=== PATIENT | female | born 1985 | race Caucasian/White ===

== ENCOUNTER 2018-12-01 12:38 | Emergency (ER) | payer OTHER ==
[~2018-12-01] VITALS: Ht 157.5 cm; Wt 86.2 kg
[~2018-12-01 12:38] MED LIST: BCP; FLEXERIL PO; NORCO 5-325 TA1 EACH PO; NYSTATIN15 GM TP
[2018-12-01 13:32] LABS: URINE BILIRUBIN NEGATIVE (Negative); URINE BLOOD 3+ (Negative); URINE CLARITY CLEAR; URINE COLOR YELLOW; URINE GLUCOSE-RANDOM* NEGATIVE (Negative); URINE KETONES TRACE (Negative); URINE LEUKOCYTES NEGATIVE (Negative); URINE NITRITE NEGATIVE (Negative); URINE PROTEIN (DIPSTICK) NEGATIVE (Negative); URINE SPECIFIC GRAVITY >= 1.030 (1.005-1.035); URINE UROBILINOGEN 0.2 E.U./dl (0.2-1.0)
[2018-12-01 13:32] LABS: ABSOLUTE NEUTROPHILS 5.4 thou/uL (1.4-8.2); BASOPHILS 0.7 % (0.0-2.0); EOSINOPHILS 1.1 % (0.0-3.0); HEMATOCRIT 36.3 % (37.0-47.0); LYMPHOCYTES 22.7 % (24.0-44.0); MCH 24.9 pg (26.0-34.0); MCHC 33.2 g/dL (28.0-37.0); MCV 75.2 fL (80.0-100.0); MONOCYTES 4.8 % (1.0-8.0); PLATELET COUNT 593 thou/uL (150-400); POLYS 70.7 % (36.0-66.0); RBC 4.83 mil/uL (4.20-5.00); RDW 19.1 % (10.5-14.5); WBC 7.7 thou/uL (4.0-11.0)
[2018-12-01 13:37] LABS: CALCIUM 9.2 mg/dL (8.5-10.1); CREATININE 0.8 mg/dL (0.6-1.0); POTASSIUM 3.9 mmol/L (3.5-5.1)
[2018-12-01 13:45] LABS: CASTS None Seen /LPF (None Seen); CRYSTALS None Seen /LPF (None Seen); SQUAMOUS 4-10 Moderate /LPF (0-3)
[2018-12-01 13:46] LABS: BACTERIA 1-9 Few /HPF (None Seen); URINE RBC >20 Many /HPF (0-2); URINE WBC 0-5 Rare /HPF (0-5)
[2018-12-01 16:13] VITALS: BP 132/68
== END 2018-12-01 16:14 | disposition home or self-care (01) ==
LOC: ER 12:38
PROVIDERS: Physician Assistant
DX: O20.0 Threatened abortion (principal); O26.891 Other specified pregnancy related conditions, first trimester; N83.202 Unspecified ovarian cyst, left side; Z3A.00 Weeks of gestation of pregnancy not specified